=== PATIENT | female | born 1935 | race Caucasian/White ===

== ENCOUNTER → 2016-11-29 | Outpatient (CLI) | payer MEDICARE, BC | END | disposition home or self-care (01) | LOC: RAD.S 07:55 | DX: R63.4 Abnormal weight loss (principal); D64.9 Anemia, unspecified; N13.30 Unspecified hydronephrosis; N13.4 Hydroureter; K86.89 Other specified diseases of pancreas; R93.49 Abnormal radiologic findings on diagnostic imaging of other urinary organs; Z96.643 Presence of artificial hip joint, bilateral ==